=== PATIENT | female | born 2000 | race Caucasian/White ===

== ENCOUNTER 2023-06-10 08:13 | Outpatient (CLI) | payer BC, SELFPAY ==
--- OUTSIDE RECORDS SUMMARY | 2023-06-11 11:06 | XMS_ITS | Data Portability ---
Author Name Unknown Address [address] [place] [address] Phone [phone] Organization [facility], [id number] Address [address] [place] [address] Assessment No assessment recorded. Plan of Treatment Reminders Order Date Submit Date Provider Last Modified By Organization Details Last Modified Time Details Appointments None recorded. Lab bacterial vaginosis + vaginitis panel, vaginal 2022 023 [id number] , [address] [place] [address], [address], [address], 3 14:21:52 CT + NG DNA, PCR, unspecified specimen 2022 023 [facility], [address] [place] [address], [address], [place], [address], 3 15:58:02 wet mount panel, vaginal fluid 2021 022 lwesser [id number] [facility] , [address] [place] [address], [address] [place] [address], [address], 2 11:38:14 bacterial vaginosis + vaginitis panel, vaginal 2020 021 WALDO [id number] [facility] , [address] [place] [address], [address] [place] [address], [address], 16:11:28 pap, IG + reflex HPV (16+18+45) 2020 021 [facility], [address] , [place], [address], 14:09:51 Referral None recorded. Procedures None recorded. Surgeries None recorded. Imaging None recorded. Medication Orders drospirenon e 3 mg-ethinyl estradiol 0.03 mg tablet 2022 023 [facility], [address] [place], [address], 09:29:46 drospirenon e 3 mg-ethinyl estradiol 0.03 mg tablet 2021 022 [facility], [address] [place], [address], 11:12:15 drospirenon e 3 mg-ethinyl estradiol 0.03 mg tablet 2020 021 [facility], [address] [place], [address], 14:41:33 Patient TargetsNo targets recorded. Patient Instructions Encounter Date Encounter Id Patient Instructions Last Modified By Organization Details Last Modified Time 02/17/2023 [id number] - Encouraged breast self-awareness and monthly breast exams. - Calcium and vitamin D intake discussed. - Encouraged regular exercise. - STI prevention & screening discussed. - Recommend HPV vaccine and discussed risks, benefits and indications. - Encouraged patient to establish care with a PCP to manage non-[employer] concerns if she does not already have one. - Discussed cervical cancer screening guidelines. Not available 02/19/2023 17:43:46 01/21/2022 [id number] - Encouraged breast self-awareness and monthly breast exams. - Calcium and vitamin D intake discussed. - Encouraged regular exercise. - STI prevention & screening discussed. - Recommend HPV vaccine and discussed risks, benefits and indications. - Encouraged patient to establish care with a PCP to manage non-[employer] concerns if she does not already have one. - Discussed cervical cancer screening guidelines. Not available 01/21/2022 11:39:15 04/11/2021 [id number] - Encouraged breast self-awareness and monthly breast exams. - Calcium and vitamin D intake discussed. - Encouraged regular exercise. - STI prevention & screening discussed. - Recommend HPV vaccine and discussed risks, benefits and indications. - Encouraged patient to establish care with a PCP to manage non-[employer] concerns if she does not already have one. - Discussed cervical cancer screening guidelines. - Vaginal hygiene discussed. - Encouraged wearing loose fitting, cotton underwear and avoid douching. No underwear at night. - Only use water to clean vaginally and if you use soap, try an unscented white bar soap like Dove. - Using condoms with intercourse can help decrease the likeliness of vaginal infections as well. - Counseling on use of estrogen containing contraceptives provided, including the 04/999 risk of DVT or stroke. This may be higher in smokers. - Discussed back up control methods. Alternative control methods discussed. - Counseling on condoms provided. - Counseling on IUDs provided. Not available 04/11/2021 14:39:31 Reason for Referral None Reported. Results Created Date Observation Date Name Description Value Unit Range Abnormal Flag LastModifiedBy Organization Detail LastModifiedTime 04/11/20 21 04/17/2021 IGP,R FXAPT [place] HPV ALL,1 6/18, 45 interpretati on nilm Not Available [facility] ([facility]) [address] [place], [address], 04/17/2021 14:09:51 04/11/20 21 04/17/2021 IGP,R FXAPT [place] HPV ALL,1 6/18, 45 category: nil Not Available [facility] ([facility]) [address] [place], [address], 04/17/2021 14:09:51 04/11/20 21 04/17/2021 IGP,R FXAPT [place] HPV ALL,1 6/18, 45 infection: foc Not Available [facility] ([facility]) [address] [facility], [place], [address], 04/17/2021 14:09:51 04/11/20 21 04/17/2021 IGP,R FXAPT [place] HPV ALL,1 6/18, 45 adequacy: endo Not Available [facility] ([facility]) [address] [facility], [place], [address], 04/17/2021 14:09:51 04/11/20 21 04/17/2021 IGP,R FXAPT [place] HPV ALL,1 6/18, 45 clinician provided ICD10: commen t Not Available [facility] ([facility]) [address] [facility], [place], [address], 04/17/2021 14:09:51 04/11/20 21 04/17/2021 IGP,R FXAPT [place] HPV ALL,1 6/18, 45 performed by: commen t Not Available [facility] ([facility]) [address] [place], [address], 04/17/2021 14:09:51 04/11/20 21 04/17/2021 IGP,R FXAPT [place] HPV ALL,1 6/18, 45 note: commen t Not Available [facility] ([facility]) [address] [facility], [place], [address], 04/17/2021 14:09:51 04/11/20 21 04/17/2021 IGP,R FXAPT [place] HPV ALL,1 6/18, 45 test methodology: commen t Not Available [facility] ([facility]) [address] [place], [address], 04/17/2021 14:09:51 04/11/20 21 04/17/2021 IGP,R FXAPT [place] HPV ALL,1 6/18, 45 . commen t Not Available [facility] ([facility]) [address] [place], [address], 04/17/2021 14:09:51 04/11/20 21 04/11/2021 bacte rial vagin osis + vagin itis panel , vagin al gardnerella negati ve negati ve Not Available [address], [place], [address], 04/11/2021 14:38:58 04/11/20 21 04/11/2021 bacte rial vagin osis + vagin itis panel , vagin al trichomonas negati ve negati ve Not Available [address], [place], [address], 04/11/2021 14:38:58 04/11/20 21 04/11/2021 bacte rial vagin osis + vagin itis panel , vagin al north positi ve negati ve Not Available [address], [place], [address], 04/11/2021 14:38:58 01/22/20 22 01/21/2022 wet mount panel , vagin al fluid Unknown Analyte < or = 4.5 Not Available [address] [address], [place], [address], 01/21/2022 11:37:46 01/22/20 22 01/21/2022 wet mount panel , vagin al fluid Unknown Analyte <20% Not Available [address], [place], [address], 01/21/2022 11:37:46 01/22/20 22 01/21/2022 wet mount panel , vagin al fluid Unknown Analyte negati ve Not Available [address], [place], [address], 01/21/2022 11:37:46 01/22/2001/21/2022 wet mount panel , vagin al fluid Unknown Analyte negati ve Not Available [address], [place], [address], 01/21/2022 11:37:46 01/22/2001/21/2022 wet mount panel , vagin al fluid Unknown Analyte positi ve Not Available [address] [address], [place], [address], 01/21/2022 11:37:46 01/22/2001/21/2022 wet mount panel , vagin al fluid Unknown Analyte positi ve Not Available [address], [place], [address], 01/21/2022 11:37:46 01/22/2001/21/2022 wet mount panel , vagin al fluid Unknown Analyte Rare Not Available [address], [place], [address], 01/21/2022 11:37:46 01/22/2001/21/2022 wet mount panel , vagin al fluid Unknown Analyte Abunda nt Rods Not Available [address], [place], [address], 01/21/2022 11:37:46 01/22/2001/21/2022 wet mount panel , vagin al fluid Unknown Analyte Positi ve Not Available [address], [place], [address], 01/21/2022 11:37:46 02/18/2002/17/2023 GC/CH LAMYD IA BY PCR chlamydia trachomatis negati ve negati ve Not Available [address], [place], [address], 02/18/2023 15:58:02 02/18/20 23 02/17/2023 GC/CH LAMYD [place] BY PCR neisseria gonorrhoeae negati ve negati ve Not Available [facility] [address] [facility] [address], [place], [address], 02/18/2023 15:58:02 02/18/2002/17/2023 bacte rial vagin osis + vagin itis panel , vagin al gardnerella negati ve negati ve Not Available [address] [address], [place], [address], 02/17/2023 09:29:14 02/18/20 23 02/17/2023 bacte rial vagin osis + vagin itis panel , vagin al trichomonas negati ve negati ve Not Available [address] [address], [place], [address], 02/17/2023 09:29:14 02/18/20 23 02/17/2023 bacte rial vagin osis + vagin itis panel , vagin al north negati ve negati ve Not Available [address] [address], [place], [address], 02/17/2023 09:29:14 Result Notes None recorded. Problems No Known Problems Procedures Surgical History Date Name Laterality Status Provider Name and Address Organization Details Recorded Time Date of Last Pap Smear completed SIMI Sarkar - [facility] 04/24/2021 14:43:47 6 closed rhinoplasty completed SIMI Han [facility] 01/21/2022 08:33:06 Imaging Results None recorded. Procedure Notes None recorded. Medical Equipment None Reported. Allergies No known drug allergies Medications Name Sig Start Date Stop Date Status Note LastModified by Organization Details LastModified Time fluconazole 150 mg tablet TAKE ONE TABLET BY MOUTH A ONE-TIME DOSE MAY REPEAT IN 72 HRS IF SYMPTOMS PERSIST 02/17 completed Not Available Not Available Not Available prednisone 20 mg tablet active Not Available Not Available Not Available methylpheni date ER 54 mg tablet,exte nded release 24 hr 04/11 completed Not Available Not Available Not Available benzonatate 100 mg capsule active Not Available Not Available Not Available codeine 10 mg-guaifene sin 100 mg/5 mL oral liquid TAKE 10 ML BY MOUTH EVERY 4 TO 6 HOURS NEEDED FOR COUGH active Not Available Not Available No t Available drospirenon e 3 mg-ethinyl estradiol 0.03 mg tablet TAKE 1 TABLET BY MOUTH ONCE DAILY active Not Available Not Available No t Available Epiduo Forte 0.3 %-2.5 % topical gel with pump 04/11 completed Not Available Not Available Not Available Vitals Date Recorded Body weight Body mass index (BMI) Body height Systolic blood pressure Diastolic blood pressure Provider Name and Address Organization Details Last Updated DateTime 04/11/2021 58575.12 g 23.6 kg/m2 165.1 cm 110 mm[Hg] 78 mm[Hg] SIMI Hunter [facility] 14:09:30 Date Recorded Body height Body mass index (BMI) Body weight Systolic blood pressure Diastolic blood pressure Provider Name and Address Organization Details Last Updated DateTime 01/21/2022 165.1 cm 23 kg/m2 12669.75 g 110 mm[Hg] 76 mm[Hg] SIMI Han [facility] 2 10:55:42 Date Recorded Body height Body mass index (BMI) Body weight Systolic blood pressure Diastolic blood pressure Provider Name and Address Organization Details Last Updated DateTime 02/17/2023 165.1 cm 22.9 kg/m2 59691.31 g 108 mm[Hg] 72 mm[Hg] SIMI Han [facility] 09:14:43 Social History Question Answer Notes LastModified by Organizat ion Details LastModified Time Do You Have An Advance Directive? No Information n ot available 02/17/2023 History Of Domestic Violence No Information not available 01/21/2022 What Is Your Relationship Status? Single Information not available 01/21/2022 Sex: Female Functional Status None recorded. Mental Status None recorded. Family History Relationship Description Onset Age of this Age Resolved Age Notes Father Hypercholesterolemia Father Hypertensive disorder Medical History Condition Response ID-Other Y Gynecological History Statement/Question Response Sexually Active Y History of Abnormal PAP N Age at Menarche: 11 Date of LMP 02/18/2023 History of Sexually Transmitted Infectio n N HPV Vaccination Not Completed Current Control Method Combined Or al Contraceptive Sexual Orientation Heterosexual Date of Last Pap Smear 04/11/2021 Obstetrics History GPAL:G 0 P 0 0 0 0 Immunizations Vaccine Type Date Status Provider Name and Address Organization Details Recorded Time Hib-Hep B 2000 completed Deneen Will null, [place] [facility] 02/17/2023 09:08:47 HPV9 11/13/2017 completed Deneen Will null, [place] [facility] 02/17/2023 09:08:47 HPV9 04/11/2017 completed Dene[place] [facility] 02/17/2023 09:08:47 IPV 2000 completed Dene[place] [facility] 02/17/2023 09:08:47 IPV 2000 completed D[place] [facility] 02/17/2023 09:08:47 IPV 07/24/2005 completed Dene[place] [facility] 02/17/2023 09:08:47 MMR 05/06/2001 completed Dene[place] null[place] [facility] 02/17/2023 09:08:47 MMR 07/24/2005 completed Deneen Will null, [place] [facility] 02/17/2023 09:08:47 COVID-19, mRNA, LNP-S, PF, 30 mcg/0.3 mL dose 11/06/2020 completed Deneen Will null, [place] [facility] 02/17/2023 09:08:47 COVID-19, mRNA, LNP-S, PF, 30 mcg/0.3 mL dose 11/27/2020 completed Deneen Will null, [facility] 02/17/2023 09:08:47 pneumococcal conjugate PCV 7 2000 completed Deneen Will null, [facility] 02/17/2023 09:08:47 pneumococcal conjugate PCV 7 2000 completed Deneen Will null, [facility] 02/17/2023 09:08:47 pneumococcal conjugate PCV 7 01/12/2001 completed Deneen Will null, [facility] 02/17/2023 09:08:47 Tdap 05/11/2012 completed Deneen Will null, [facility] 02/17/2023 09:08:47 varicella 05/11/2012 completed Deneen Will null, [facility] 02/17/2023 09:08:47 varicella 01/12/2001 completed Deneen Will null, [facility] 02/17/2023 09:08:47 Influenza, seasonal, injectable 03/10/2002 completed Deneen Will null, [facility] 02/17/2023 09:08:47 Influenza, seasonal, injectable 03/10/2003 completed Deneen Will null, [facility] 02/17/2023 09:08:47 Hep B, adolescent or pediatric 2000 completed Deneen Will null, [facility] 02/17/2023 09:08:47 Hep B, adult 04/11/2017 completed Deneen Will null, [facility] 02/17/2023 09:08:47 Hep A, ped/adol, 2 dose 11/13/2017 completed Deneen Will null, [facility] 02/17/2023 09:08:47 Hep A, ped/adol, 2 dose 04/11/2017 completed Deneen Will null, [facility] 02/17/2023 09:08:47 Meningococcal MCV4O 05/11/2012 completed Deneen Will null, [place] [facility] 02/17/2023 09:08:47 DTaP 2000 completed Edneen [place] null[place] [facility] 02/17/2023 09:08:47 DTaP 2000 completed [place] [facility] 02/17/2023 09:08:47 DTaP 07/24/2005 completed D[place] [facility] 02/17/2023 09:08:47 DTaP-Hib 05/06/2001 completed [place] [facility] 02/17/2023 09:08:47 influenza, injectable, quadrivalent, preservative free 03/20/2022 completed Dene[place] null[place] [facility] 02/17/2023 09:10:28 Past Encounters Encounter ID Performer Location Encounter Start Date Encounter Closed Date Diagnosis/Indication [id number] GIANA QUINTERO [id number] [facility] [address] [place] [address] [id number] 04/11/2021 13:25:50 04/11/2021 15:42:18 Gynecologic examination Vaginal irritation Contraception care management [id number] GIANA QUINTERO [id number] [facility] [facility] [address] [place] [address] [id number] 01/21/2022 10:43:02 01/21/2022 11:41:13 Contraception care management Gynecologic examination Vaginal irritation [id number] GIANA QUINTERO [id number] [facility] [address] [place] [address] [id number] 02/17/2023 09:05:58 02/20/2023 09:44:40 Gynecologic examination Surveillance of oral contraception Vaginal irritation Venereal disease screening Health Concerns Section Related Observation LastModified by Organization Detai ls LastModified Time None Recorded Concern Status LastModified by Organization Details LastModified Time None Recorded Advance Directives Directive N: Payers Encounter Date Sequence Insurance Name Policy Number Policy [place] Covered Member ID [place] Member ID Guarantor Name 02/17/2023 1 [employer] [id number] Fred Shoemaker [id number] Macarena Shoemaker 01/21/2022 1 [employer] [facility] - CHOICE PLUS (POS) [id number] Fred Shoemaker [id number] Macarena Shoemaker 04/11/2021 1 [id number] Fred Shoemaker [id number] Macarenaanita Shoemaker Notes Date Note Type Note Provider Name and Address Organization Details Recorded Time 04/11/2021 text/html HPI Notes: Ellen frederick Premenopausal ([facility]) Reported by patient. Patient Relationship To Practice: new patient Current Medical History: no active medical problems Relevant Family History: no family history of breast cancer; no family history of ovarian cancer; no family history of uterine cancer; no family history of colon cancer; no family history of blood clots/DVT Menstrual History: Frequency of Menses: monthly; Duration of Flow: 4 days; Quantity of Flow: moderate; c/w withdrawal bleed on OCPs Contraceptive Method: Current Method Used: oral contraceptives; unsatisfied Sexually Active: Yes: same partner STI Screen: declines; recent testing done at school Health/Prevention: Exercise: yes; Adequate Calcium Intake: yes; Breast Self Exam: yes; Mental Health Screen: normal Mammogram: not applicable Pap Smear +/- HPV Cotesting: due Colonoscopy: not applicable Macarena presents today for new patient annual exam. She also reports vaginal itching and increased x3 days. Tried OTC 7 day Monistat treatment and states she had hives from it. Also tried AZO for vaginitis relief. Denies odor, dysuria, dyspareunia, change in hygiene products, and fever, body aches, and chills. Benny at [employer] [facility] [employer]. [address], [place] [address] [facility],[address], [place], [address], [place] - [facility] 04/11/2021 15:36:35 01/21/2022 text/html HPI Notes: Ellen frederick Premenopausal ([facility]) Reported by patient. Patient Relationship To Practice: established patient Current Medical History: no active medical problems Relevant Family History: no family history of breast cancer; no family history of ovarian cancer; no family history of uterine cancer; no family history of colon cancer; no family history of blood clots/DVT Menstrual History: Frequency of Menses: monthly; Duration of Flow: 4 days; Quantity of Flow: moderate; c/w withdrawal bleed on OCPs Contraceptive Method: satisfied: oral contraceptives Sexually Active: Yes: same partner STI Screen: declines Health/Prevention: Exercise: yes; Adequate Calcium Intake: yes; Breast Self Exam: yes; Mental Health Screen: normal Mammogram: not applicable Pap Smear +/- HPV Cotesting: up-to-date Thyroid/Lipid Screening: up-to-date Colonoscopy: not applicable Macarena presents today for annual exam. She also reports vaginal itching for which she took 1 dose of diflucan 3 days ago. Denies odor, dysuria, dyspareunia, change in hygiene products, and fever, body aches, and chills. Completing Gardasil vaccine at school - just needs last dose. 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 [address], [facility] [address] [facility],[address], [place], [address] [place] [facility] 01/21/2022 11:39:52 02/17/2023 text/html HPI Notes: Ellen Solitario () Reported by patient. Patient Relationship To Practice: established patient Current Medical History: no active medical problems Relevant Family History: no family history of breast cancer; no family history of ovarian cancer; no family history of uterine cancer; no family history of colon cancer; no family history of blood clots/DVT Menstrual History: Frequency of Menses: monthly; Duration of Flow: 4 days; Quantity of Flow: moderate; c/w withdrawal bleed on OCPs Contraceptive Method: satisfied: oral contraceptives Sexually Active: Yes: new partner STI Screen: desires Health/Prevention: Exercise: yes; Adequate Calcium Intake: yes; Breast Self Exam: yes; Mental Health Screen: normal Mammogram: not applicable Pap Smear +/- HPV Cotesting: up-to-date Thyroid/Lipid Screening: up-to-date Colonoscopy: not applicable Macarena presents today for annual exam. Sx onset of itching 1 week ago, first dose of diflucan Friday, repeat dose Friday. She also reports vaginal itching for which she took 1 dose of diflucan 3 days ago. Denies odor, dysuria, dyspareunia, change in hygiene products, and fever, body aches, and chills. Completed Gardasil vaccine at school. 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 GIANA QUINTERO [id number] [facility],[address], [place], [address], [place] [facility] 02/19/2023 17:44:07 OBGyn Episode No OBEpisode recorded.
== END 2023-06-10 08:14 | disposition home or self-care (01) ==
LOC: NFLDREF 06-11 11:02
PROVIDERS: PCP Family Medicine; Referring Provider Family Medicine; Visit Provider Physician Assistant Medical
DX: N39.0 Urinary tract infection, site not specified (principal)
CPT/HCPCS: 87086; 87186